=== PATIENT | male | born 1985 | race Caucasian/White ===

== ENCOUNTER 2023-05-06 13:43 | Outpatient (CLI) | payer OTHER, SELFPAY ==
--- NOTE | ~2023-05-06 | XR_ITS ---
AP view of the pelvis and AP and lateral views of the bilateral hips Clinical history: Pain Findings: There is mild remodeling/flattening of the right femoral head with questionable subtle subc hondral lucency. Questionable curvilinear sclerotic areas at the bilateral femoral heads.. Soft tissu es are unremarkable. 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 MRI recommended to better assess underlying marrow signal characteristics. Reviewed, dictated and finalized at location M. 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 MRI recommended to better assess underlying marrow sign al characteristics.
== END 2023-05-06 13:44 | disposition home or self-care (01) ==
PROVIDERS: PCP Family Medicine Adolescent Medicine; Visit Provider Family Medicine Adolescent Medicine
DX: M16.0 Bilateral primary osteoarthritis of hip (principal)
CPT/HCPCS: 73521